=== PATIENT | female | born 1995 | race American Indian/Alaskan Native ===

== ENCOUNTER 2021-07-26 13:03 | Emergency (ER) | payer MEDICAID ==
--- NOTE | 2021-07-26 14:37 | Emergency Department Report ---
Minor Respiratory - HPI Chief Complaint: Upper Respiratory Infection Stated Complaint: CHEST PAIN Time Seen by Provider: 07/26/21 14:17 Duration: 3 Days Pain Location: Chest Severity: mild Minor Respiratory: Yes Sore Throat, Yes Able to Tolerate Fluids, Yes Cough, No Rhinorrhea, No Ear Pain, No Sick Contacts, No Hemoptysis, No Chest Pain, No Shortness of Breath, No Fever Other History: 26 yo comes to er with cough and sore throat. No cp. no sob. Non ill non toxic. Ambulatory to ER ED Review of Systems ROS: Stated complaint: CHEST PAIN Other details as noted in HPI Comment: All other systems reviewed and negative ED Past Medical Hx - Past Medical History Previous Medical History?: No - Surgical History Past Surgical History?: No - Family History Family history: no significant - Social History Smoking Status: Never Smoker Substance Use Type: None - Medications Home Medications: Home Medications Medication Instructions Recorded Confirmed Last Taken Type Fluticasone [Flonase] 1 spray NS QDAY #1 bottle 07/26/21 Unknown Rx predniSONE [Deltasone] 20 mg PO DAILY #5 tablet 07/26/21 Unknown Rx Minor Respiratory Exam - Exam General: Vital signs noted. No distress. Alert and acting appropriately. HEENT: Yes Moist Mucous Membranes, No Pharyngeal Erythema, No Pharyngeal Exudates, No Rhinorrhea, No Conjuctival Injection, No Frontal Tenderness, No Maxillary Tenderness Ear: Neither TM Bulge, Neither TM Erythema, Neither EAC Pain, Neither EAC Discharge Neck: Yes Supple, No Adenopathy Lungs: Yes Good Air Exchange, No Wheezes, No Ronchi, No Stridor, No Cough, No Labored Respirations, No Retractions, No Use of Accessory Muscles, No Other A bnormal Lung Sounds Heart: Yes Regular, No Murmur Abdomen: Yes Normal Bowel Sounds, No Tenderness, No Peritoneal Signs Skin: No Rash, No Edema Neurologic: Alert and oriented, no deficits. Musculoskeletal: Unremarkable. ED Course Vital Signs 07/26/21 13:56 Temperature 98.5 F Pulse Rate 76 Respiratory 14 Rate Blood Pressure 117/80 [Left] O2 Sat by Pulse 100 Oximetry ED Medical Decision Making - Radiology Data Radiology results: report reviewed, image reviewed [facility] - Medical Decision Making Vital Signs 07/26/21 07/26/21 13:56 15:45 Temperature 98.5 F 98.1 F Pulse Rate 76 80 Respiratory 14 14 Rate Blood Pressure 117/80 132/84 [Left] O2 Sat by Pulse 100 100 Oximetry xray nap no indication for antibiotics dc home with dc plan of care including diet, activity, meds and diet. Pt verbalizes understanding of plan of care. - Differential Diagnosis ro uri/pna Critical care attestation.: If time is entered above; I have spent that time in minutes in the direct care of this critically ill patient, excluding procedure time. ED Disposition Clinical Impression: Bronchitis Disposition: 01 HOME / SELF CARE / HOMELESS Is pt being admited?: No Does the pt Need Aspirin: No Condition: Stable Instructions: Upper Respiratory Infection, Adult, [id number], Chronic Bronchitis (ED) Additional Instructions: meds as ordered today stay well hydrated follow up with pcp referral below Prescriptions: predniSONE [Deltasone] 20 mg PO DAILY #5 tablet Fluticasone [Flonase] 1 spray NS QDAY #1 bottle Referrals: ERNESTO EDWARDS MD [Staff Physician] - 3-5 Days Time of Disposition: 14:37
--- NOTE | 2021-07-26 15:17 | XRay Report ---
CHEST 2 VIEWS INDICATION / CLINICAL INFORMATION: SOB. COMPARISON: None available. FINDINGS: SUPPORT DEVICES: None. HEART / MEDIASTINUM: The heart size and pulmonary vasculature are normal. LUNGS / PLEURA: No significant pulmonary or pleural abnormality. No pneumothorax. ADDITIONAL FINDINGS: No significant additional findings. IMPRESSION: No acute findings. Signer Name: Jonathan Rodriguez MD Signed: 07/26/2021 3:13 PM Workstation Name: [id number]
[2021-07-26 15:48] VITALS: BP 132/84
== END 2021-07-26 15:48 | disposition home or self-care (01) ==
LOC: ED 13:03
DX: J40 Bronchitis, not specified as acute or chronic (principal)
CPT/HCPCS: 71046; 99283

== ENCOUNTER 2021-09-08 07:49 | Emergency (ER) | payer MEDICAID ==
--- NOTE | 2021-09-08 13:25 | Emergency Department Report ---
ED ENT HPI - General Chief complaint: Sore Throat Stated complaint: DEHYDRATION Time Seen by Provider: 09/08/21 13:20 Source: patient Mode of arrival: Ambulatory Limitations: No Limitations - History of Present Illness Initial comments: 26-year-old female presents to the ER today with complaints of sore throat. Patient states that she has been having sore throat for 3 weeks. She states that she is having difficulty swallowing due to the pain, and she also feels like it swollen. She denies any runny nose, stuffy nose, cough, fever, chills, body aches, difficulty opening her mouth or drooling. She reports no additional symptoms at this time. complaint: sore throat -: week(s) - Related Data Previous Rx's Medication Instructions Recorded Last Taken Type Fluticasone [Flonase] 1 spray NS QDAY #1 bottle 07/26/21 Unknown Rx predniSONE [Deltasone] 20 mg PO DAILY #5 tablet 07/26/21 Unknown Rx Amoxicillin [Trimox CAP] 500 mg PO Q12H #20 capsule 09/08/21 Unknown Rx dexAMETHasone [Decadron] 4 mg PO Q12H #10 tablet 09/08/21 Unknown Rx Allergies Allergy/AdvReac Type Severity Reaction Status Date / Time No Known Allergies Allergy Verified 07/26/21 13:58 ED Dental HPI - General Chief complaint: Sore Throat Stated complaint: DEHYDRATION Time Seen by Provider: 09/08/21 13:20 Source: patient Mode of arrival: Ambulatory Limitations: No Limitations - Related Data Previous Rx's Medication Instructions Recorded Last Taken Type Fluticasone [Flonase] 1 spray NS QDAY #1 bottle 07/26/21 Unknown Rx predniSONE [Deltasone] 20 mg PO DAILY #5 tablet 07/26/21 Unknown Rx Amoxicillin [Trimox CAP] 500 mg PO Q12H #20 capsule 09/08/21 Unknown Rx dexAMETHasone [Decadron] 4 mg PO Q12H #10 tablet 09/08/21 Unknown Rx Allergies Allergy/AdvReac Type Severity Reaction Status Date / Time No Known Allergies Allergy Verified 07/26/21 13:58 ED Review of Systems ROS: Stated complaint: DEHYDRATION Other details as noted in HPI Comment: All other systems reviewed and negative Constitutional: denies: chills, fever Eyes: denies: eye pain, eye discharge, vision change ENT: throat pain Respiratory: denies: cough, shortness of breath, SOB with exertion, SOB at rest, wheezing Cardiovascular: as per HPI Gastrointestinal: denies: abdominal pain, nausea, diarrhea, constipation, hematemesis, melena, hematochezia Genitourinary: denies: urgency, dysuria, frequency, hematuria, discharge, abnormal menses, dyspareunia Musculoskeletal: denies: back pain, joint swelling, arthralgia Skin: denies: rash, lesions, change in color, change in hair/nails, pruritus Neurological: denies: headache, weakness, paresthesias, abnormal gait Psychiatric: denies: anxiety, depression, auditory hallucinations, visual hallucinations, homicidal thoughts, suicidal thoughts Hematological/Lymphatic: denies: easy bleeding, easy bruising, swollen glands ED Past Medical Hx - Social History Smoking Status: Never Smoker Substance Use Type: None - Medications Home Medications: Home Medications Medication Instructions Recorded Confirmed Last Taken Type Fluticasone [Flonase] 1 spray NS QDAY #1 bottle 07/26/21 Unknown Rx predniSONE [Deltasone] 20 mg PO DAILY #5 tablet 07/26/21 Unknown Rx Amoxicillin [Trimox CAP] 500 mg PO Q12H #20 capsule 09/08/21 Unknown Rx dexAMETHasone [Decadron] 4 mg PO Q12H #10 tablet 09/08/21 Unknown Rx ED Physical Exam - General Limitations: No Limitations General appearance: alert, in no apparent distress - Head Head exam: Present: atraumatic, normocephalic, normal inspection - Eye Eye exam: Present: normal appearance, PERRL, EOMI Pupils: Present: normal accommodation - Expanded ENT Exam Expanded Mouth exam: Present: normal external inspection Throat exam: Positive: tonsillar erythema, tonsillomegaly (Mild bilaterally). Negative: tonsillar exudate, R peritonsillar mass, L peritonsillar mass - Neck Neck exam: Present: normal inspection, full ROM, lymphadenopathy (Mild anterior cervical adenopathy without tenderness or overlying erythema). Absent: meningismus - Respiratory Respiratory exam: Present: normal lung sounds bilaterally. Absent: respiratory distress, wheezes, rales, rhonchi - Cardiovascular Cardiovascular Exam: Present: regular rate, normal rhythm, normal heart sounds - Neurological Exam Neurological exam: Present: alert, oriented X3, CN II-XII intact, normal gait - Psychiatric Psychiatric exam: Present: normal affect, normal mood ED Course Vital Signs 09/08/21 09:01 Temperature 98.7 F Pulse Rate 76 Respiratory 18 Rate Blood Pressure 127/47 [Right] O2 Sat by Pulse 100 Oximetry ED Medical Decision Making - Medical Decision Making 26-year-old female presents to the ER today with complaints of sore throat. Patient states that she has been having sore throat for 3 weeks. She states that she is having difficulty swallowing due to the pain, and she also feels like it swollen. She denies any runny nose, stuffy nose, cough, fever, chills, body aches, difficulty opening her mouth or drooling. She reports no additional symptoms at this time. 1328: Patient is well-appearing, she is not toxic and she is not in significant distress. She is controlling her secretions well. She has normal voice. Her airway appears to be intact. She has no stridor or respiratory distress on exam. Her vital signs are stable. Patient will be treated clinically for possible strep throat but she will be given referral information to ENT for further evaluation if her symptoms continue. Patient expressed understanding for instructions. Patient was stable at time of discharge. Critical care attestation.: If time is entered above; I have spent that time in minutes in the direct care of this critically ill patient, excluding procedure time. ED Disposition Clinical Impression: Pharyngitis Disposition: HOME / SELF CARE / HOMELESS Is pt being admited?: No Does the pt Need Aspirin: No Condition: Stable Instructions: Pharyngitis, [id number] Additional Instructions: Take the amoxicillin and the Decadron as prescribed. I recommend that you increase your fluid intake, you can also do cold stuff like popsicles, Jell-O, ice and if you do decide to eat recommend a soft diet. Follow-up with the ENT and your primary care doctor. Return to the ER if your symptoms changes or worsens in any way. Prescriptions: dexAMETHasone [Decadron] 4 mg PO Q12H #10 tablet Amoxicillin [Trimox CAP] 500 mg PO Q12H #20 capsule Referrals: GERALD MCKEON MD [Staff Physician] - 3-5 Days RONAL GANNON MD [Referring] - 3-5 Days (ENT) Forms: Work/School Release Form(ED) Time of Disposition: 13:24
[2021-09-08 13:33] VITALS: BP 123/75
== END 2021-09-08 13:33 | disposition home or self-care (01) ==
LOC: ED 07:49
DX: J02.9 Acute pharyngitis, unspecified (principal); Z79.899 Other long term (current) drug therapy
CPT/HCPCS: 99282